=== PATIENT | female | born 1975 | race Caucasian/White ===

== ENCOUNTER 2017-05-13 16:57 | Emergency (ER) | payer OTHER ==
[~2017-05-13] VITALS: Ht 170.2 cm; Wt 88.0 kg
[2017-05-13 17:09] VITALS: BP 139/91
== END 2017-05-13 18:05 | disposition home or self-care (01) ==
LOC: ED 17:55
DX: S09.21XA Traumatic rupture of right ear drum, initial encounter (principal); X58.XXXA Exposure to other specified factors, initial encounter; Y93.89 Activity, other specified; Y92.89 Other specified places as the place of occurrence of the external cause; Y99.9 Unspecified external cause status
CPT/HCPCS: 99283